=== PATIENT | male | born 1980 | race Caucasian/White ===

== ENCOUNTER 2016-12-26 00:25 | Emergency (ER) | payer OTHER ==
[2016-12-26] MEDS ORDERED: AZITHROMYCIN 250 MG TABLET (FP) PO STA (00:52)
[2016-12-26] MEDS ORDERED: ALBUTEROL SO4 0.083% IH SOL 2.5 MG/3 ML VIAL.NEB. NEB ONE (00:52)
--- NOTE | 2016-12-26 00:57 | PDOC ---
History of Present Illness - General Chief Complaint: Cold Symptoms Stated Complaint: COLD SYMPTOMS, RESPIRATORY Time Seen by Provider: 12/26/16 00:49 History Source: Patient Exam Limitations: No Limitations - History of Present Illness Initial Comments: 12/26/16 00:58 36-year-old male with no Pmhx, presents with cough and congestion for the last week. Pt has ocassional productive cough. Pt denies smoking. Denies sick contacts. Denies recent travel. Denies chest pain or sob. Denies any urinary complaints. Past History - Past Medical History Allergies/Adverse Reactions: Allergies Allergy/AdvReac Type Severity Reaction Status Date / Time No Known Allergies Allergy Verified 12/26/16 00:41 Home Medications: Ambulatory Orders Amox Tr/Potassium Clavulanate [Augmentin 875-125 Tablet] 1 each PO BID #20 tablet 10/24/11 Ibuprofen [Motrin] 800 mg PO Q8H PRN #21 tablet 10/24/11 Albuterol Sulfate Inhaler - [Ventolin HFA Inhaler -] 2 inh IH Q6H #1 inh Azithromycin [Zithromax -] 250 mg PO UTDICT #6 tab 12/26/16 Guaifenesin AC [Robitussin AC -] 5 ml PO TID #60 liquid MDD 20 12/26/16 - Psycho/Social/Smoking Cessation Hx Anxiety: No Suicidal Ideation: No Smoking Status: Yes Smoking History: Never smoked Have you smoked in the past 12 months: No Number of Cigarettes Smoked Daily: 0 Information on smoking cessation initiated: No Hx Alcohol Use: No Drug/Substance Use Hx: No Review of Systems - Review of Systems Able to Perform ROS?: Yes Is the patient limited [place] proficient: No Constitutional: Yes: Symptoms Reported, See HPI. No: Chills, Fever, Loss of Appetite, Malaise, Night Sweats, Weakness, Weight Stable HEENTM: Yes: Symptoms Reported, See HPI. No: Eye Pain, Blurred Vision, Tearing , Recent change in vision, Cataracts, Ear Discharge, Nose Pain, Tinnitus Respiratory: Yes: Symptoms reported, See HPI, Cough, Productive cough. No: Orthopnea, Shortness of Breath, SOB with Exertion, SOB at Rest Cardiac (ROS): Yes: Symptoms Reported, See HPI. No: Chest Pain, Edema, Irregular Heart Rate, Palpitations, Other ABD/GI: Yes: Symptoms Reported, See HPI. No: Abd. Pain w/ defecation, Blood Streaked Bowels, Constipated, Diarrhea, Difficulty Swallowing, Nausea, Rectal Bleeding, Vomiting, Indigestion : Yes: Symptoms Reported, See HPI. No: Burning, Dysuria, Discharge, Frequency , Flank Pain, Hematuria, Urgency Musculoskeletal: Yes: Symptoms Reported, See HPI. No: Back Pain, Gout, Joint Pain, Joint Swelling, Muscle Pain, Muscle Weakness, Neck Pain Integumentary: Yes: Symptoms Reported, See HPI. No: Bruising, Change in Color, Change in Hair/Nails, Dryness, Lesions, Lumps Neurological: Yes: Symptoms reported, See HPI. No: Headache, Numbness, Paresthesia, Pre-Existing Deficit, Seizure, Tingling Psychiatric: No: Anxiety, Depression, Frequent Crying, Stressors, Sleep Pattern Change Endocrine: Yes: Symptoms Reported, See HPI. No: Excessive Sweating, Intolerance to Cold, Intolerance to Heat, Increased Hunger Hematologic/Lymphatic: Yes: Symptoms Reported, See HPI. No: Anemia, Blood Clots , Easy Bleeding, Bleeding Diathesis, Lymph Node Abnormalities *Physical Exam - Vital Signs Last Vital Signs Temp Pulse Resp BP Pulse Ox 97.7 F 93 H 16 140/81 96 12/26/16 00:43 12/26/16 00:43 12/26/16 00:43 12/26/16 00:43 12/26/16 00:43 - Physical Exam Comments: 12/26/16 00:56 *Physical Exam General Appearance: Yes: Appropriately Dressed. No: Apparent Distress, Intoxicated HEENT: positive: EOMI, DENNIS, Normal ENT Inspection, Normal Voice, TMs Normal, Pharynx Normal. negative: Pale Conjunctivae, Photophobia, Scleral Icterus (R), Scleral Icterus (L) Neck: positive: Trachea midline, Normal Thyroid, Supple. negative: Tender, Rigid, Carotid bruit, Stridor, Lymphadenopathy (R), Lymphadenopathy (L), Thyromegaly Respiratory/Chest: positive: Lungs Clear, mild scatterred wheezing negative: Chest Tender, Respiratory Distress, Accessory Muscle Use, Labored Respiration, RES, Crackles, Rales, Rhonchi, Stridor, Dullness Cardiovascular: positive: Regular Rhythm, Regular Rate, S1, S2. negative: Edema , JVD, Murmur, Bradycardia, Tachycardia Vascular Pulses: Dorsalis-Pedis (R): 2+, Doralis-Pedis (L): 2+ Gastrointestinal/Abdominal: positive: Normal Bowel Sounds, Flat, Soft. negative : Tender, Organomegaly, Pulsatile Mass, Increased Bowel Sounds, Decreased BS, Distended, Guarding, Rebound, Hernia, Hepatomegaly, Spleenomegaly Lymphatic: negative: Adenopathy, Tenderness Musculoskeletal: positive: Normal Inspection. negative: CVA Tenderness, Decreased Range of Motion Extremity: positive: Normal Capillary Refill, Normal Inspection, Normal Range of Motion, Pelvis Stable. negative: Tender, Pedal Edema, Swelling, Erythema Integumentary: positive: Normal Color, Dry, Warm. negative: Cyanotic, Erythema , Jaundice, Rash Neurologic: positive: vehicle technician II-XII NML intact, Fully Oriented, Alert, Normal Mood/ Affect, Motor Strength 5/5. negative: EOM Palsy, Facial Droop, Sensory Deficit Medical Decision Making - Medical Decision Making 12/26/16 00:55 Dr. Jeffrey: The scribe's documentation has been prepared under my direction and personally reviewed by me in its entirery. I confirm that the note above accurately reflects all work, treatment, procedures, and medical decision making performed by me. *DC/Admit/Observation/Transfer Diagnosis at time of Disposition: Cough - Discharge Dispostion Disposition: HOME Condition at time of disposition: Stable Admit: No - Patient Instructions Printed Discharge Instructions: DI for Cough -- Adult
[2016-12-26 00:59] VITALS: BP 140/81; PULSE 93; TEMP 97.7; BMI 47.5
[2016-12-26] MEDS ORDERED: AZITHROMYCIN 250 MG TABLET (FP) ONE (01:03)
== END 2016-12-26 01:12 | disposition home or self-care (01) ==
LOC: JER 00:25
PROC: 3E0F7GC Introduction of Other Therapeutic Substance into Respiratory Tract, Via Natural or Artificial Opening (ICD-10-PCS; principal; 2016-12-26)
DX: R05 Cough (principal)
CPT/HCPCS: 94640; 99281-25

== ENCOUNTER 2020-11-09 07:08 | Emergency (ER) | payer BC, OTHER ==
[2020-11-09 07:43] VITALS: TEMP 98.4; BMI 39.5
[2020-11-09] MEDS ORDERED: ALBUTEROL SO4 2.5/IPRATROPIUM 0.5 INH SOL 3 ML VIAL.NEB. NEB ONE ×2 (08:14→08:43)
[2020-11-09] MEDS ORDERED: predniSONE 20 MG TABLET (UD) PO ONE (08:14)
[2020-11-09] MEDS ORDERED: predniSONE 20 MG TABLET (UD) ONE (08:43)
[2020-11-09 09:56] LABS: INR 0.96 (0.83-1.09); PROTHROMBIN TIME (PATIENT) 11.8 SEC (9.7-13.0)
[2020-11-09 09:59] LABS: ACTIVATED PTT 30.1 SECONDS (25.2-36.5)
[2020-11-09 10:03] LABS: CHLORIDE 105 mmol/L (98-107); POTASSIUM 4.1 mmol/L (3.5-5.1); SODIUM 141 mmol/L (136-145)
[2020-11-09 10:06] LABS: BASO % 0.6 % (0-2.0); CALCIUM 9.1 mg/dL (8.5-10.1); EOS % 2.9 % (0-4.5); HEMATOCRIT 42.7 % (35.4-49); HEMOGLOBIN 14.1 GM/dL (11.7-16.9); LYMPH % 26.3 % (8-40); MCH 27.8 pg (25.7-33.7); MEAN CELL VOLUME 84.2 fl (80-96); MONO % 5.8 % (3.8-10.2); NEUT % 64.4 % (42.8-82.8); PLATELET COUNT 295 K/MM3 (134-434); RBC 5.08 M/mm3 (4.00-5.60); RDW 15.4 % (11.9-15.9); WHITE BLOOD COUNT 7.7 K/mm3 (4.0-10.0)
[2020-11-09 10:07] LABS: ALBUMIN 3.6 g/dl (3.4-5.0); ANION GAP 9 MMOL/L (8-16); BLOOD UREA NITROGEN 12.2 mg/dL (7-18); CO2 28 mmol/L (21-32); GLUCOSE,RANDOM 97 mg/dL (74-106)
[2020-11-09 10:09] LABS: CREATININE 0.6 mg/dL (0.55-1.3)
[2020-11-09 10:10] LABS: SGOT/AST 18 U/L (15-37); SGPT/ALT 35 U/L (13-61)
[2020-11-09 10:11] LABS: BILIRUBIN,TOTAL 0.5 mg/dL (0.2-1); LDH 137 U/L (87-246); TOT PROT 7.5 g/dl (6.4-8.2)
[2020-11-09 10:12] LABS: ALK PHOS 86 U/L (45-117)
[2020-11-09] MEDS ORDERED: ALBUTEROL SO4 0.083% IH SOL 2.5 MG/3 ML VIAL.NEB. NEB ONE ×2 (11:17→11:29)
[2020-11-09 12:38] VITALS: BP 140/68; PULSE 112
== END 2020-11-09 12:42 | disposition home or self-care (01) ==
LOC: JER 07:08
PROC: 3E0F7GC Introduction of Other Therapeutic Substance into Respiratory Tract, Via Natural or Artificial Opening (ICD-10-PCS; principal; 2020-11-09)
DX: U07.1 COVID-19 (principal); J45.901 Unspecified asthma with (acute) exacerbation
CPT/HCPCS: 36415; 71045-TC-FY; 80053; 82550; 82728; 83605; 83615; 84484; 85025; 85610; 85730; 86140; 87804; 93005; 93010; 99285-25

== ENCOUNTER 2023-07-10 10:06 | Emergency (ER) | payer BC ==
[2023-07-10 10:14] VITALS: BP 158/85; PULSE 88; RESP 18; TEMP 98; BMI 50.1
[2023-07-10] MEDS ORDERED: predniSONE 20 MG TABLET (UD) PO ONE (10:43)
[2023-07-10] MEDS ORDERED: ALBUTEROL SO4 2.5/IPRATROPIUM 0.5 INH SOL 3 ML VIAL.NEB. NEB ONE ×2 (10:43)
[2023-07-10] MEDS ORDERED: predniSONE 20 MG TABLET (UD) ONE (10:44)
== END 2023-07-10 12:48 | disposition home or self-care (01) ==
LOC: JER 10:06 → JERFT 10:06
PROC: 3E0F7GC Introduction of Other Therapeutic Substance into Respiratory Tract, Via Natural or Artificial Opening (ICD-10-PCS; principal; 2023-07-10)
DX: J45.30 Mild persistent asthma, uncomplicated (principal)
CPT/HCPCS: 99283-25